=== PATIENT | female | born 1975 | race Caucasian/White ===

== ENCOUNTER 2016-05-02 21:35 | Emergency (ER) | payer MEDICAID, OTHER ==
[~2016-05-02] VITALS: Ht 167.6 cm; Wt 88.0 kg
[~2016-05-02 21:35] MED LIST: CEFT500T3 PO; FLUTI220I INH; PRED20 PO; VENTAER INH
[2016-05-02 21:36] VITALS: BP 145/80; PULSE 82; RESP 18; TEMP 98; O2SAT 98
[2016-05-02] MEDS ORDERED: DOXY100C PO (21:59)
[2016-05-02] MEDS ORDERED: ALBU6.7H INH (21:59)
[2016-05-02] MEDS ORDERED: DOXYCYCLINE HYCLATE 100 MG CAP PO ONE (22:00)
--- NOTE | 2016-05-02 22:02 | PD ---
HPI Chief Complaint: Cold / Flu Symptoms Time Seen by Provider: 21:59 Travel History International Travel<30 days: No Contact w/Intl Traveler<30days: No Traveled to known affect area: No History of Present Illness HPI 40-year-old white female presents to emergency department with a four-day history of subjective fever and chills, earache, sore throat, cough, congestion , patient wheezing, and general malaise. Positive myalgias and arthralgias. She denies any nausea vomiting. No abdominal pain or diarrhea. No dysuria or frequency. PFSH Past Medical History Narrative Medical Asthma Asthma: Yes Diminished Hearing: No Headaches: Yes Respiratory: Yes (asthma) Immunizations Current: Yes Tetanus Vaccination: < 5 Years ?: Not : 8 Para: 5 Miscarriage: 3 : 0 Past Surgical History Abdominal Surgery: No Appendectomy: No Cardiac Surgery: No Section: Yes (4) Cholecystectomy: No Ear Surgery: No Endocrine Surgery: No Eye Surgery: No Genitourinary Surgery: No Gynecologic Surgery: Yes Joint Replacement: No Oral Surgery: No Thoracic Surgery: No Other Surgery: Yes (C SECTION x 4) Social History Alcohol Use: No Tobacco Use: No Substance Use: No Allergies-Medications (Allergen,Severity, Reaction): Coded Allergies: Erythromycin (Verified Adverse Reaction, Mild, Nausea/Vomiting, 05/02/16) Reported Meds & Prescriptions Reported Meds & Active Scripts Active Reported Ventolin Hfa 18 GM Inh (Albuterol Sulfate) 90 Mcg/Act Aer 2 Puff INH Q4H PRN Review of Systems Except as stated in HPI: all other systems reviewed are Neg Physical Exam Narrative GENERAL: Well-developed, well-nourished in no acute distress. Nontoxic appearing. HEAD: Normocephalic, atraumatic. EYES: Pupils equal round and reactive. Extraocular motions intact. No scleral icterus. No injection or drainage. ENT: TMs clear without erythema. The external auditory canals clear. Nose: clear . Posterior pharynx is pink and moist. No tonsillar edema or exudate. Uvula midline. Airway patent. NECK: Trachea midline.Supple, nontender, moves head freely. No central bony tenderness or spasm. CARDIOVASCULAR: Regular rate and rhythm without murmurs, gallops, or rubs. RESPIRATORY: Clear to auscultation. Breath sounds equal bilaterally. No wheezes , rales, or rhonchi. GASTROINTESTINAL: Abdomen soft, non-tender, nondistended. No hepato-splenomegaly , or palpable masses. No guarding. EXTREMITIES: No clubbing, cyanosis, or edema. No joint tenderness, effusion, or edema noted. BACK: Nontender without deformity or crepitance. No flank tenderness. Data Data Last Documented VS Vital Signs Date Time Temp Pulse Resp B/P Pulse Ox O2 Delivery O2 Flow Rate FiO2 05/02/16 21:53 19 05/02/16 21:36 98.0 82 145/80 98 Orders Doxycycline (Vibramycin) (05/02/16 22:00) [facility] Medical Decision Making Medical Screen Exam Complete: Yes Emergency Medical Condition: Yes Medical Record Reviewed: Yes Differential Diagnosis MDM: High Differential diagnoses: Pneumonia, bronchitis, URI, asthma, RAD, legionnaire's disease, SARS, ARDS, influenza, bronchiolitis, RSV,PE,CHF Narrative Course Patient's given doxycycline 100 mg by mouth. This is influenza-like illness, bronchitis Diagnosis Primary Impression: Influenza-like illness Additional Impression: Bronchitis Patient Instructions: General Instructions Departure Forms: Tests/Procedures, Work Release Special Instructions: No work 2-3 days. Additional Instructions: Rest. Increase fluids. Tylenol and Advil. Robitussin-DM. Doxycycline, and albuterol. Followup with your Dr. in one week. Return to the ER for any problems. Med/Other Pt SpecificInfo: Prescription(s) given Scripts Albuterol 6.7 GM Inh (Proventil Hfa 6.7 GM Inh)90 Mcg/Act Aer2 Puff INH Q6H PRN (SHORTNESS OF BREATH) #1 INHALER Prov:Eduardo Jalloh MD 05/02/16 Doxycycline Hyclate 100 Mg [id number] Mg PO BID #14 CAP Prov:Eduardo Jalloh MD 05/02/16 Disposition: 01 DISCHARGE HOME Condition: Stable Yunier Dill May 02, 2016 22:02
== END 2016-05-02 22:13 | disposition home or self-care (01) ==
LOC: NEPB 21:35
DX: J11.1 Influenza due to unidentified influenza virus with other respiratory manifestations (principal); J40 Bronchitis, not specified as acute or chronic
CPT/HCPCS: 99283

== ENCOUNTER 2016-12-31 11:04 | Emergency (ER) | payer MEDICAID ==
[~2016-12-31] VITALS: Ht 167.6 cm; Wt 100.0 kg
[~2016-12-31 11:04] MED LIST changes: +ALBU6.7H INH; -CEFT500T3 PO; +DOXY100C PO; -FLUTI220I INH; -PRED20 PO
[2016-12-31 11:05] VITALS: BP 163/74; PULSE 84; RESP 14; TEMP 97.7; O2SAT 99
--- NOTE | 2016-12-31 11:38 | PD ---
HPI Chief Complaint: Cold / Flu Symptoms Time Seen by Provider: 11:37 Travel History International Travel<30 days: No Contact w/Intl Traveler<30days: No Traveled to known affect area: No History of Present Illness HPI 41-year-old female, approximately 7 weeks , presents to emergency Department with complaint of sinus pressure, cough, nasal congestion, right ear pain 1 week. Denies fevers. Denies abdominal pain, cramping, vaginal discharge, vaginal leakage, vaginal bleeding. Denies sore throat. Denies chest pain, chest tightness, shortness of breath, wheezing. Does have history of asthma and has been using and her inhaler as needed. Reports nausea without vomiting. Has not taken any other medications or drainage other treatments to alleviate her symptoms. Symptoms are mild in severity. No known aggravating or relieving factors. Allergies to erythromycin base. Has no medical complaints. No other modifying factors or associated signs and symptoms. PFSH Past Medical History Asthma: Yes Diminished Hearing: No Headaches: Yes Respiratory: Yes (asthma) Immunizations Current: Yes ?: LMP: 10/31/16 : 8 Para: 5 Miscarriage: 3 : 0 Past Surgical History Abdominal Surgery: No Appendectomy: No Cardiac Surgery: No Section: Yes (4) Cholecystectomy: No Ear Surgery: No Endocrine Surgery: No Eye Surgery: No Genitourinary Surgery: No Gynecologic Surgery: Yes Joint Replacement: No Oral Surgery: No Thoracic Surgery: No Other Surgery: Yes (C SECTION x 4) Social History Alcohol Use: No Tobacco Use: No Substance Use: No Allergies-Medications (Allergen,Severity, Reaction): Coded Allergies: erythromycin base (Verified Adverse Reaction, Mild, Nausea/Vomiting, ) Reported Meds & Prescriptions Reported Meds & Active Scripts Active Amoxicillin 500 Mg Cap 500 Mg PO BID 10 Days Proventil Hfa 6.7 GM Inh (Albuterol Sulfate) 90 Mcg/Act Aer 2 Puff INH Q6H PRN Doxycycline Hyclate 100 Mg Cap 100 Mg PO BID Reported Ventolin Hfa 18 GM Inh (Albuterol Sulfate) 90 Mcg/Act Aer 2 Puff INH Q4H PRN Review of Systems Except as stated in HPI: all other systems reviewed are Neg General / Constitutional: No: Fever Eyes: No: Visual changes HENT: No: Headaches Cardiovascular: No: Chest Pain or Discomfort Respiratory: No: Shortness of Breath Gastrointestinal: No: Abdominal Pain Genitourinary: No: Dysuria Musculoskeletal: No: Pain Skin: No Rash Neurologic: No: Weakness Psychiatric: No: Depression Endocrine: No: Polydipsia Hematologic/Lymphatic: No: Easy Bruising Physical Exam Narrative GENERAL: Well-nourished, well-developed female patient, in no acute distress; afebrile, nontoxic-appearing SKIN: Warm and dry. No rash. HEAD: Atraumatic. Normocephalic. Frontal and maxillary sinus tenderness on palpation. EYES: Pupils equal and round at 3 mm with brisk reaction. No scleral icterus. No injection or drainage. PERRLA. ENT: Mucosa pink and moist. Oropharynx without erythema, exudates, tonsillar edema.. No uvular edema. No uvular, palatal, or tonsillar deviation. Airway patent. EARS: Bilateral pinnae and external canals appear within normal limits. Bilateral tympanic membranes without erythema, dullness or perforation. NECK: Trachea midline. No lymphadenopathy. CARDIOVASCULAR: Regular rate and rhythm. No murmur appreciated. RESPIRATORY: No accessory muscle use. Clear to auscultation. Breath sounds equal bilaterally. GASTROINTESTINAL: Abdomen soft, non-tender, nondistended. Hepatic and splenic margins not palpable. Bowel sounds are active 4 quadrants. MUSCULOSKELETAL: No obvious deformities. No clubbing. No cyanosis. No edema. NEUROLOGICAL: Awake and alert. Oriented 3. No obvious cranial nerve deficits. Motor grossly within normal limits. Normal speech. Moves all extremities. 5/5 strength to all extremities. PSYCHIATRIC: Appropriate mood and affect; insight and judgment normal. Data Data Last Documented VS Vital Signs Date Time Temp Pulse Resp B/P (MAP) Pulse Ox O2 Delivery O2 Flow Rate FiO2 12/31/16 11:45 12/31/16 11:05 97.7 84 14 99 Orders Orders Ed Discharge Order (12/31/16 11:42) MDM Medical Decision Making Medical Screen Exam Complete: Yes Emergency Medical Condition: Yes Medical Record Reviewed: Yes Differential Diagnosis Sinusitis, upper respiratory infection, bronchitis, asthma exacerbation Narrative Course 41-year-old female, that is proximal to 7 weeks , history of present illness and physical exam consistent with sinusitis. Patient has been sick for one week follow-up prescribed antibiotics secondary to length of illness. Denies fever, vomiting. Denies abdominal pain, cramping, vaginal bleeding, discharge, leakage. Amoxicillin prescribed for home. Instructed patient to follow up with auto garage attendant. Instructed patient to follow up with primary care provider. Patient verbalizes understanding and agreement with treatment plan. Patient is medically cleared and stable for discharge. Discussed reasons to return to the emergency department. Patient agrees with treatment plan. The patients vital signs are stable and the patient is stable for outpatient follow- up and treatment. Patient discharged home, stable and in no acute distress. Diagnosis Primary Impression: Sinusitis Qualified Codes: J32.9 - Chronic sinusitis, unspecified Referrals: [facility] [employer] Primary Care Physician Patient Instructions: General Instructions, Sinusitis (ED) Departure Forms: Tests/Procedures, Work Release Enter return to work date: Jan 02, 2017 Additional Instructions: Antibiotics as prescribed and complete full course Ibuprofen or Tylenol as instructed and as needed for fever/pain Get plenty of sleep/rest Drink plenty of fluids to prevent dehydration; popsicles and Gatorade Use an air humidifier/turn off ceiling fans Follow-up with primary care provider Follow-up with an auto garage attendant Return immediately to the emergency department with worsening of symptoms Med/Other Pt SpecificInfo: Prescription(s) given Scripts Amoxicillin (Amoxicillin) 500 Mg Cap 500 MG PO BID for Infection for 10 Days, #20 CAP 0 Refills Prov: Merissa Rucker 12/31/16 Disposition: 01 DISCHARGE HOME Condition: Stable Merissa Rucker Dec 31, 2016 11:38
[2016-12-31] MEDS ORDERED: AMOX500C PO (11:40)
== END 2016-12-31 11:45 | disposition home or self-care (01) ==
LOC: NEPK 11:04
DX: O99.511 Diseases of the respiratory system complicating pregnancy, first trimester (principal); J32.9 Chronic sinusitis, unspecified; J45.909 Unspecified asthma, uncomplicated; R11.0 Nausea; Z3A.01 Less than 8 weeks gestation of pregnancy; Z79.899 Other long term (current) drug therapy
CPT/HCPCS: 99283